=== PATIENT | female | born 1975 ===

== ENCOUNTER 2020-06-03 22:03 | Emergency (ER) | payer SELFPAY ==
[~2020-06-03] VITALS: Ht 167.6 cm; Wt 63.6 kg
[2020-06-03 22:16] VITALS: BP 132/76
--- NOTE | 2020-06-03 22:21 | NUR ---
PT IS SHOUTING/CURSSING AT STAFF AND BEING UNCOOPERATIVE WITH QUESTIONING. SECURITY IS AT BEDSIDE. PT IS ADVISED THAT SHE NEEDS TO TREAT OUR STAFF WITH RESPECT OR SHE WILL BE ASKED TO LEAVE. SHE HAS TROUBLE COMING UP WITH A CHIEF COMPLAINT AND WHEN ASKED IF SHE NEEDS TO SEE THE DR. SHE SAYS SHE NEEDS "PILLS" WHEN ASKED WHAT KIND OF PILLS SHE STATES " CONTROL ONES" -
--- NOTE | 2020-06-03 22:33 | NUR ---
PT CONTINUES TO SCREAM AND HOLLER DESPITE BEING REMINDED THERE IS A SICK CHILD IN THE BED NEXT TO HER. SHE CALLS ME A "FUCKING BITCH" AND SAYS "I HOPE YOU LOSE YOUR JOB, YOU NEED TO BE FIRED" - CALLED TO BEDSIDE TO EVAL PT
[2020-06-03] MEDS ORDERED: ALBU8.5H8 INH (22:35)
[2020-06-03] MEDS ORDERED: acetaminophen 325mg tablet PO ONE (22:35)
== END 2020-06-03 23:04 | disposition home or self-care (01) ==
LOC: ER 22:04
DX: J02.9 Acute pharyngitis, unspecified (principal); R05 Cough
CPT/HCPCS: 99283